=== PATIENT | female | born 1990 | race Caucasian/White ===

== ENCOUNTER 2017-06-01 18:59 | Emergency (ER) | payer MEDICAID ==
[~2017-06-01] VITALS: Ht 162.6 cm; Wt 60.1 kg
[2017-06-01 19:05] VITALS: BP 122/72
[2017-06-01] MEDS ORDERED: ACETAMINOPHEN 500 MG TAB PO ONE (19:30)
== END 2017-06-01 20:29 | disposition home or self-care (01) ==
LOC: ER 18:59
DX: J02.9 Acute pharyngitis, unspecified (principal); J35.1 Hypertrophy of tonsils; F17.210 Nicotine dependence, cigarettes, uncomplicated